=== PATIENT | male | born 1950 | race Caucasian/White ===

== ENCOUNTER 2018-11-08 07:38 | Outpatient (CLI) | payer MEDICARE, BC ==
--- NOTE | 2018-11-08 10:08 | CT ---
CT Abdomen Pelvis W WO con History: Gross hematuria Comparison: CT from 2009 Findings: On the noncontrast portion of the examination lung bases are clear. No pericardial effusion . In the inferior right renal collecting system is a nonobstructive 3 x 4 mm calculus in a calyx. No other renal calculi are appreciated. No hydroureteronephrosis. Urinary bladder is without calculus . No abnormal renal enhancing mass. No perinephric stranding. Simple cyst inferior pole right kidney me asures approximately 7 mm. There is smaller too small to fully characterize hypodensities in the interpolar and inferior pole right kidney although statistically likely cysts. No abnormal enhancing urothelial mass. Urinary bladder wall thickness is normal. On the delayed phase of contrast calyces are sharp. No filling defects within the ureters nor urinary bladder. Prostate is not significantly enlarged. Numerous calcified granulomas of the spleen. Liver is unremarkable. Prior cholecystectomy. Aortic contour is nonaneurysmal with moderate atherosclerotic calcifications. No free intraperitoneal gas or fluid. Moderate degenerative changes lumbar spine. Donaldson padma thor acic spine. Impression: 1. Nonobstructive small 3 to 4 mm calculus inferior right renal collecting system. No hydroureteronep hrosis or secondary evidence of a recently passed stone. 2. No abnormal renal enhancing mass or urothelial enhancing mass. 3. Relatively normal size of the prostate.
== END 2018-11-08 07:39 | disposition home or self-care (01) ==
LOC: SCSCT 07:38
PROVIDERS: ATTEND Family Medicine
DX: R31.0 Gross hematuria (principal); N20.0 Calculus of kidney
CPT/HCPCS: 74178

== ENCOUNTER 2018-12-04 13:05 | Outpatient (CLI) | payer MEDICARE, BC ==
--- NOTE | 2018-12-05 23:26 | EKG ---
Test Reason : Blood Pressure : / mmHG Vent. Rate : 087 BPM Atrial Rate : 087 BPM P-R Int : 168 ms QRS Dur : 080 ms QT Int : 366 ms P-R-T Axes : 060 048 068 degrees QTc Int : 440 ms Poor data quality, interpretation may be adversely affected Normal sinus rhythm Normal ECG When compared with ECG of 09-AUG-2008 11:23, Vent. rate has decreased BY [address] no longer depressed in Anterolateral leads Confirmed by Elizabeth JARA ([id number]) on 12/05/2018 11:25:40 PM Referred By: KOKI Confirmed By:Elizabeth JARA
== END 2018-12-04 13:06 | disposition home or self-care (01) ==
LOC: LABBT 13:05
PROVIDERS: ATTEND Urology
DX: Z01.818 Encounter for other preprocedural examination (principal); D41.4 Neoplasm of uncertain behavior of bladder
CPT/HCPCS: 93005; 93010

== ENCOUNTER 2018-12-10 06:59 | Day surgery (SDC) | payer MEDICARE, BC ==
[2018-12-04 14:59] LABS: Hemoglobin 16.2 g/dL (14.0-18.0); Mean Corpuscular HGB CONC 34.5 g/dL (32.0-36.0); Mean Corpuscular Hemoglobin 32.1 pg (27.0-31.0); Mean Corpuscular Volume 92.9 fL (78.0-98.0); Mean Platelet Volume 7.3 fL (7.4-10.4); Platelet Count 253 thou/uL (130-400); RBC Distribution Width 11.9 % (11.5-14.5); Red Blood Cell (RBC) Count 5.03 mill/uL (4.70-6.10); White Blood Cell (WBC) Count 8.3 thou/uL (4.8-10.8)
[2018-12-04 15:18] LABS: Anion Gap 13 mmol/L (10-20); BUN (Urea Nitrogen) 13 mg/dL (8.4-25.7); Calc. Creatinine Clearance 0 mL/min (70-130); Calcium 9.8 mg/dL (7.8-10.44); Carbon Dioxide 26 mmol/L (23-31); Chloride 100 mmol/L (98-107); Estimated GFR-MDRD 86; Glucose 110 mg/dL (80-115); Potassium 3.7 mmol/L (3.5-5.1); Sodium 135 mmol/L (136-145)
[2018-12-04 15:19] LABS: Bacteria/HPF None Seen HPF (None Seen); Bilirubin Negative (Negative); Blood, Urine Negative (Negative); Clarity Clear (Clear); Glucose, Urine (Dipstick) Normal (Negative); Leukocyte Negative Leu/uL (Negative); Nitrite Negative (Negative); Protein, Urine (Dipstick) Negative (Neg-Trace); RBC/HPF 0-3 HPF (0-3); Squamous Epithelial None Seen HPF (0-3); Urobilinogen Normal mg/dL (Less than 2); WBC/HPF 0-3 HPF (0-3)
[2018-12-10] MEDS ORDERED: Iothalamate Meglumine 60% 50 ML VIAL FS ONE (08:23)
[2018-12-10] MEDS ORDERED: Fentanyl 100 MCG/2 ML VIAL ONE (08:36)
[2018-12-10] MEDS ORDERED: Midazolam HCl 2 mg/2 ml Vial ONE (08:36)
[2018-12-10] MEDS ORDERED: Levofloxacin 500 mg/D5W 100 ml Premix Bag ONE (08:55)
--- NOTE | 2018-12-10 09:50 | RAD ---
Bilateral retrograde pyelogram: 12/10/2018 HISTORY: Bladder cancer FINDINGS: 2 views are provided. There is contrast media within bilateral ureters and intrarenal colle cting systems with no discrete filling defect seen. Correlation with real-time imaging is essential. IMPRESSION: Bilateral retrograde pyelogram as above.
[2018-12-10] MEDS ORDERED: Oxybutynin 5 MG TAB ONE (10:03)
[2018-12-10] MEDS ORDERED: Phenazopyridine HCl 97.5 MG TABLET ONE (10:03)
[2018-12-10] MEDS ORDERED: Ketorolac Tromethamine 30 MG/ML VIAL ONE (10:03)
--- NOTE | 2018-12-10 10:52 | OP ---
DATE OF PROCEDURE: 12/10/2018 PREOPERATIVE DIAGNOSIS: Bladder tumor. POSTOPERATIVE DIAGNOSIS: Bladder tumor. PROCEDURES PERFORMED: Cystoscopy with bilateral retrograde pyelograms, left ureteroscopy, and transurethral resection of median bladder tumor. ANESTHESIA: General, endotracheal. SPECIMEN: Lateral tumor, trigone tumor. COMPLICATIONS: None. BLOOD LOSS: 10 mL. DESCRIPTION OF PROCEDURE: After informed consent, the patient was taken to the operating room, transferred to the table on his own power. Anesthesia was established. A timeout was performed showing the correct patient, site, and procedure. Preoperative antibiotics were administered. He was prepped and draped in the lithotomy position. The rigid resectoscope was advanced through the urethra, revealed normal course and caliber of the urethra with small coapting lateral lobes of the prostate. The bladder was then entered noting mild tuberculation and a complex of tumors along the lateral wall extending with very low profile changes to the mucosa over the left ureteral orifice. Total area involves about 4 cm. The bladder was systematically examined, noting no other mucosal abnormalities. The right ureteral orifice was uninvolved. All tumors were at low grade in appearance. Using a Pollack catheter, a right and left retrograde pyelograms were performed showing good filling of the entirety of each ureter and renal pelvis without filling defects or abnormalities. A wire was then placed into the left ureter and I elected to perform ureteroscopy given that the low profile tumor was extended over the ureteral orifice. After the wire was placed, the rigid resectoscope was withdrawn and the semi-rigid ureteroscope was passed through the urethra into the bladder. The left ureteral orifice was entered noting no extension into the ureter of the tumor. The scope was passed up to the proximal ureter without any abnormalities identified. That scope was then withdrawn and I removed the wire. I then switched to the resectoscope once again and using the resection loop, removed the entirety of the tumor complex. I did have to resect over the left ureteral orifice, which was done on cutting current. The tumor resection base was then cauterized as well as the edges. Care was taken to avoid cauterizing near or on the ureteral orifice. The bladder was drained removing all pieces of specimen. I then reinserted the camera and elected to take a biopsy from the trigone medial to the ureteral orifice. This was also removed and passed off separately. I then made sure that hemostasis was achieved and the left ureter was effluxing well at the end of the case. The scope was then withdrawn. The patient was awoken from anesthesia, transferred back to his hospital bed and taken to PACU in stable condition, where he will be discharged to home upon recovery. Job ID: [id number]
== END 2018-12-10 12:35 | disposition home or self-care (01) ==
LOC: SDC 06:59
PROVIDERS: ATTEND Urology
PROC: 0TBB8ZZ Excision of Bladder, Via Natural or Artificial Opening Endoscopic (ICD-10-PCS; principal; 2018-12-10)
DX: D41.4 Neoplasm of uncertain behavior of bladder (principal); I10 Essential (primary) hypertension; E78.5 Hyperlipidemia, unspecified; Z79.899 Other long term (current) drug therapy; Z88.0 Allergy status to penicillin; Z88.2 Allergy status to sulfonamides; Z88.8 Allergy status to other drugs, medicaments and biological substances
CPT/HCPCS: 36415; 74420; 80048; 81001; 85027; 86850; 86900; 86901; 87086; 88305; 88307; J0690; J1885; J1956; J2250; J3010

== ENCOUNTER 2022-10-05 13:31 | Outpatient (CLI) | payer MEDICARE, BC ==
[2022-10-05 15:39] LABS: Bilirubin Neg (Negative); Blood, Urine Negative (Negative); Glucose, Urine (Dipstick) Normal (Negative); Ketone, Urine Negative (Negative); Leukocyte 25 (Negative); Nitrite Negative (Negative); Protein, Urine (Dipstick) 15 mg/dl (Neg-Trace); Specific Gravity, Urine 1.015 (1.005-1.030); Urobilinogen Normal mg/dL (Less than 2); pH, Urine 6.5 (5.0-9.0)
[2022-10-05 15:41] LABS: Hematocrit 44.9 % (38.8-50.0); Hemoglobin 14.9 g/dL (13.5-17.5); Mean Corpuscular HGB CONC 33.2 g/dL (32.0-36.0); Mean Corpuscular Hemoglobin 31.1 pg (27.0-33.0); Mean Corpuscular Volume 93.7 fl (81.2-95.1); Platelet Count 286 10x3/uL (150-450); RBC Distribution Width 13.2 % (11.5-14.5); Red Blood Cell (RBC) Count 4.79 10x6/uL (4.32-5.72); White Blood Cell (WBC) Count 10.3 10x3/uL (3.5-10.5)
[2022-10-05 15:56] LABS: Clarity Clear (Clear)
[2022-10-05 16:00] LABS: PTT 30.9 sec (22.0-33.0); Prothrombin Time 10.6 sec (9.5-12.1)
[2022-10-05 16:01] LABS: Anion Gap 16 mmol/L (10-20); BUN (Urea Nitrogen) 13 mg/dL (8.4-25.7); Calc. Creatinine Clearance 0 mL/min (70-130); Calcium 9.6 mg/dL (7.8-10.44); Carbon Dioxide 27 mmol/L (23-31); Chloride 102 mmol/L (98-107); Estimated GFR 96; Glucose 84 mg/dL (83-110); Potassium 4.2 mmol/L (3.5-5.1); Sodium 141 mmol/L (136-145)
[2022-10-05 16:16] LABS: Bacteria/HPF None Seen HPF (None Seen); RBC/HPF None Seen HPF (0-3); Squamous Epithelial None Seen HPF (0-3); WBC/HPF None Seen HPF (0-3)
== END 2022-10-05 13:32 | disposition home or self-care (01) ==
LOC: LABBT 13:31
PROVIDERS: ATTEND Urology
DX: Z01.818 Encounter for other preprocedural examination (principal); C67.2 Malignant neoplasm of lateral wall of bladder; N40.1 Benign prostatic hyperplasia with lower urinary tract symptoms; R35.1 Nocturia; Z80.42 Family history of malignant neoplasm of prostate
CPT/HCPCS: 80048; 81001; 85027; 85610; 85730; 87086; 93005; 93010

== ENCOUNTER 2022-10-13 08:22 | Day surgery (SDC) | payer MEDICARE, BC ==
[2022-10-05 14:34] VITALS: BMI 33.1
[2022-10-13] MEDS ORDERED: LevoFLOXacin 500 mg/D5W 100 ML BAG ONE (11:27)
[2022-10-13] MEDS ORDERED: fentaNYL PF 100 MCG/2 ML SYRINGE ONE (11:32)
[2022-10-13] MEDS ORDERED: Ondansetron PF 4 MG/2 ML Vial ONE (11:45)
[2022-10-13] MEDS ORDERED: Dexamethasone 20 MG/5 ML VIAL ONE (11:45)
[2022-10-13] MEDS ORDERED: Lidocaine 1% PF 5 ML VIAL ONE (11:45)
[2022-10-13] MEDS ORDERED: PROPOFOL 200 MG/20 ML VIAL ONE (11:45)
[2022-10-13] MEDS ORDERED: Phenazopyridine HCl 100 MG TAB ONE (12:50)
== END 2022-10-13 14:55 | disposition home or self-care (01) ==
LOC: SDC 08:22
PROVIDERS: ATTEND Urology
PROC: 0TBB8ZX Excision of Bladder, Via Natural or Artificial Opening Endoscopic, Diagnostic (ICD-10-PCS; principal; 2022-10-13)
DX: C67.2 Malignant neoplasm of lateral wall of bladder (principal); N40.1 Benign prostatic hyperplasia with lower urinary tract symptoms; R35.1 Nocturia; E78.5 Hyperlipidemia, unspecified; I10 Essential (primary) hypertension; G25.81 Restless legs syndrome; E55.9 Vitamin D deficiency, unspecified; M41.9 Scoliosis, unspecified; B15.9 Hepatitis A without hepatic coma; R74.01 Elevation of levels of liver transaminase levels; Z88.0 Allergy status to penicillin; Z80.42 Family history of malignant neoplasm of prostate; Z90.89 Acquired absence of other organs; Z98.49 Cataract extraction status, unspecified eye; Z88.8 Allergy status to other drugs, medicaments and biological substances; Z79.899 Other long term (current) drug therapy
CPT/HCPCS: 88305; J1100; J1956; J2405; J2704

== ENCOUNTER 2023-02-01 17:00 | Outpatient (CLI) | payer MEDICARE, BC | END 2023-02-01 17:01 | disposition home or self-care (01) | LOC: SLEEPLAB 17:00 | PROVIDERS: ATTEND Family Medicine | DX: G47.33 Obstructive sleep apnea (adult) (pediatric) (principal); R53.83 Other fatigue; G31.84 Mild cognitive impairment of uncertain or unknown etiology; E66.9 Obesity, unspecified; R06.83 Snoring; G47.10 Hypersomnia, unspecified; I10 Essential (primary) hypertension; G47.00 Insomnia, unspecified; G25.81 Restless legs syndrome; G47.31 Primary central sleep apnea; G47.61 Periodic limb movement disorder; Z68.32 Body mass index [BMI] 32.0-32.9, adult | CPT/HCPCS: 95811 ==

== ENCOUNTER 2023-03-29 16:00 | Outpatient (CLI) | payer MEDICARE, BC | END 2023-03-29 16:01 | disposition home or self-care (01) | LOC: SLEEPLAB 16:00 | PROVIDERS: ATTEND Family Medicine | DX: G47.33 Obstructive sleep apnea (adult) (pediatric) (principal); R53.83 Other fatigue; G31.84 Mild cognitive impairment of uncertain or unknown etiology; E66.9 Obesity, unspecified; R06.83 Snoring; Z68.32 Body mass index [BMI] 32.0-32.9, adult | CPT/HCPCS: 95811 ==